=== PATIENT | female | born 1940 | race Two or more races ===

== ENCOUNTER 2022-01-30 12:55 | Outpatient (CLI) | payer OTHER | END 2022-01-30 12:56 | disposition home or self-care (01) | LOC: NUCLEAR 12:55 | PROVIDERS: ATTEND Urology | DX: C64.1 Malignant neoplasm of right kidney, except renal pelvis (principal); K31.1 Adult hypertrophic pyloric stenosis | CPT/HCPCS: 78708; A9539; J1940 ==

== ENCOUNTER 2022-05-21 08:15 | Inpatient (IN) | payer OTHER ==
[~2022-05-21] VITALS: Ht 167.6 cm; Wt 65.8 kg
[2022-05-21] MEDS ORDERED: TOPROL XL50 M1 PO (09:52)
[2022-05-21] MEDS ORDERED: ZETIA10 MG PO (09:52)
[2022-05-21] MEDS ORDERED: ALTACE2.5 MG PO (09:53)
[2022-05-21] MEDS ORDERED: TRICOR PO (09:53)
[2022-05-21] MEDS ORDERED: ADULT LOW DOSE81 M1 PO (09:54)
[2022-05-21] MEDS ORDERED: SYNTHROID50 MCG PO (09:54)
[2022-05-21] MEDS ORDERED: NASAL MIST126 ML (09:54)
== END 2022-05-25 19:43 | disposition home or self-care (01) | DRG 658 ==
LOC: ADM 08:15 → EDSTATUS 08:15 → O/R 05-23 05:55 → SURG 05-23 07:00
PROVIDERS: ADMIT Urology; ATTEND Urology
PROC: 0TB04ZZ Excision of Right Kidney, Percutaneous Endoscopic Approach (ICD-10-PCS; principal; 2022-05-23 07:00)
DX: C64.1 Malignant neoplasm of right kidney, except renal pelvis (principal); Z20.822 Contact with and (suspected) exposure to COVID-19

== ENCOUNTER → 2023-08-27 | Outpatient (CLI) | payer OTHER ==
[~2023-08-27] MED LIST: ADULT LOW DOSE81 M1 PO; ALTACE2.5 MG PO; NASAL MIST126 ML; SYNTHROID50 MCG PO; TOPROL XL50 M1 PO; TRICOR PO; ZETIA10 MG PO
== END | disposition home or self-care (01) ==
LOC: SONOGRAMA 08:49
PROVIDERS: ATTEND Urology
DX: C64.1 Malignant neoplasm of right kidney, except renal pelvis (principal)